=== PATIENT | female | born 1950 | race Caucasian/White ===

== ENCOUNTER 2017-04-05 09:09 | Emergency (ER) | payer OTHER ==
[2017-04-05 09:16] VITALS: RESP 16; TEMP 97.5; O2SAT 98
--- NOTE | 2017-04-05 09:53 | EDPHY ---
H & P Time Seen by Provider: 04/05/17 09:20 HPI/ROS: CHIEF COMPLAINT: High blood pressure HISTORY OF PRESENT ILLNESS: 67-year-old woman referred to us from Urgent Care. She went there because she has had some bilateral fullness in her ears for the last 3 weeks and was worried she might be getting an ear infection. She was evaluated, prescribed Flonase and referred to us because she had hypertension when her blood pressure was taken at urgent care. Patient tells me she was diagnosed with high blood pressure 20 years ago and was initially placed on medications, she does not recall the specific medication. She did have side effects and then changed her diet and exercise more and lost weight and was able to have her blood pressure come down spontaneously after that, although she has not had it checked for at least the last 6 months. Has not been on any hypertensive medications since then. Today she does not have symptoms other than her ear fullness. REVIEW OF SYSTEMS: Eye: no change in vision or double vision ENT: no sore throat Cardiac: no chest pain or syncope, no lightheadedness, no palpitations Pulmonary: no cough or SOB Abdomen: no vomiting, diarrhea, abdominal pain Musculoskeletal: No peripheral edema today, she has had some intermittent ankle swelling in the past Skin: no rash Neuro: no headache Constitutional: no fever : no urinary symptoms, normal urination A comprehensive 10 point review of systems is otherwise negative aside from elements mentioned in the history of present illness. PAST MEDICAL HISTORY: and tonsillectomy Social history: Lives in [place], recently changed insurance to Medicare, has been assigned to Dr. Deneen Melton at [facility] but has not seen her yet. General Appearance: Alert and conversant, cooperative. Eyes: No scleral icterus. Extraocular motion intact. ENT, Mouth: Normal mucous membranes. Patient does not have tympanic membrane erythema but has slight fullness of tympanic membranes on both sides. Otherwise normal pharynx. Respiratory: Normal respiratory effort, breath sounds equal, lungs are clear to auscultation. No rales. Cardiovascular: Regular rate and rhythm. No extra heart sounds or murmur. Gastrointestinal: Abdomen is soft and non tender. Neurological: Alert, face symmetric. Ambulatory, not ataxic. Fluent speech. Skin: Warm and dry, no rashes. Musculoskeletal: No peripheral edema. Psychiatric: Not agitated. Emergency Department course/MDM: Patient noted to have hypertension here but does not have evidence on history or physical examination of end-organ damage acutely. Patient was discussed in detail on the phone with her assigned primary care physician Deneen Melton who requested that I start the patient on 5 mg oral Norvasc daily and she will follow up with the patient this Monday or Monday in the clinic. No other diagnostics clinically acutely indicated, discussed with Dr. Melton and the patient, both in agreement. I think treating her with Flonase for her ear symptoms is reasonable and she does not have clinical indications for antibiotics on my evaluation. Potential risk, potential benefit, alternatives and potential side effects of Norvasc discussed and consented. Smoking Status: Former smoker Constitutional: Initial Vital Signs Temperature (C) 36.4 C 04/05/17 09:13 Heart Rate 69 04/05/17 09:13 Respiratory Rate 16 04/05/17 09:13 Blood Pressure 198/100 H 04/05/17 09:13 O2 Sat (%) 98 04/05/17 09:13 O2 Delivery Mode Room Air Allergies/Adverse Reactions: No Known Allergies Allergy (Verified 04/05/17 09:16) Home Medications: Medication Instructions Recorded amLODIPine BESYLATE [Norvasc 5 mg 5 mg PO DAILY #10 tab 04/05/17 (*)] MDM/Departure - Depart Disposition: Home, Routine, Self-Care Clinical Impression: Hypertension Condition: Good Instructions: Amlodipine (By mouth), Hypertension (ED) Additional Instructions: You are prescribed Norvasc 5 mg by mouth daily after discussion with your primary care provider Dr. Deneen Melton. She requested that you follow-up with her in 2 or 3 days this Monday or Monday at the walk-in clinic at [facility]. Prescriptions: amLODIPine BESYLATE [Norvasc 5 mg (*)] 5 mg PO DAILY #10 tab Referrals: TERRELL CARVAJAL [Primary Care Provider] - As per Instructions Deneen Melton MD [Medical Doctor] - As per Instructions [facility] [Outside] - As per Instructions
[2017-04-05 10:03] VITALS: BP 181/98; PULSE 71
== END 2017-04-05 10:02 | disposition home or self-care (01) ==
LOC: CED 09:09
DX: I10 Essential (primary) hypertension (principal); Z87.891 Personal history of nicotine dependence

== ENCOUNTER 2018-08-03 13:33 | Day surgery (SDC) | payer BC, OTHER ==
--- NOTE | 2018-08-03 08:21 | GHP ---
[f rep st] PREOP HISTORY AND PHYSICAL DATE OF ADMISSION: 08/03/2018 PREOP DIAGNOSIS: Right back soft tissue mass. HISTORY OF PRESENT ILLNESS: A 68-year-old woman who developed a nodule on her right upper back. It has been present for over 2 years. Over the past several weeks, it has become dramatically larger as well as more tender. She denies any overlying skin changes including redness. No drainage from the wound. No fevers or chills. She has never had anything like this before. She is not currently on antibiotics. PAST MEDICAL HISTORY: Hypertension. PAST SURGICAL HISTORY: Cesarian section. MEDICATIONS: Amlodipine. ALLERGIES: No known drug allergies. FAMILY HISTORY: Noncontributory. SOCIAL HISTORY: She reports using alcohol 1-2 times per week. No tobacco or recreational drug use. REVIEW OF SYSTEMS: No fevers or chills. PHYSICAL EXAMINATION: GENERAL: Well-developed, well-nourished woman in no acute distress. HEENT: Normocephalic, atraumatic. No hearing deficits. Pupils equal and round. No scleral icterus. Mucou s membranes moist. NECK: Trachea midline. RESPIRATORY: No increased work of breathing. CARDIOVAS CULAR: No peripheral edema. SKIN: The right upper back with large subcutaneous nodule consistent w ith a sebaceous cyst. No surrounding erythema. No purulence. No evidence of active infection. PSY CH: Mood and affect normal. NEURO: Grossly intact. IMPRESSION AND PLAN: 68-year-old woman with right upper back subcutaneous nodule consistent with alison aceous cyst. We recommended operative excision. Discussed risks of surgery including, but not limit ed to, heart attack, stroke, blood clots, or . Discussed risk of infection, bleeding, damage to surrounding structures, scar, or recurrence. She understands the risks and would like to proceed. Patient additionally seen by Dr. Holly Soares, who agrees with the above impression and plan. This wi ll be an outpatient procedure. She will receive antibiotics customer solutions coordinator to the operating room. /[id number]/MODL
[2018-08-03] MEDS ORDERED: LR 1,000 ML IV ONE (13:41)
--- NOTE | 2018-08-03 13:47 | PDANEPAE ---
ANE History of Present Illness Mass right post shoulder ANE Past Medical History - Cardiovascular History Hx Hypertension: Yes Hx Arrhythmias: No Hx Chest Pain: No Hx Coronary Artery / Peripheral Vascular Disease: No Hx CHF / Valvular Disease: No Hx Palpitations: No Cardiovascular History Comment: INTERMITTENT HTN OFF MEDS FOR 2 MONTHS - Pulmonary History Hx COPD: No Hx Asthma/Reactive Airway Disease: No Hx Recent Upper Respiratory Infection: No Hx Oxygen in Use at Home: No Hx Sleep Apnea: No Sleep Apnea Screening Result - Last Documented: Negative - Neurologic History Hx Cerebrovascular Accident: No Hx Seizures: No Hx Dementia: No - Endocrine History Hx Diabetes: No - Renal History Hx Renal Disorders: No - Liver History Hx Hepatic Disorders: No - Neurological & Psychiatric Hx Hx Neurological and Psychiatric Disorders: No - Cancer History Hx Cancer: No - Congenital Disorder History Hx Congenital Disorders: No - GI History Hx Gastrointestinal Disorders: Yes Gastrointestinal History Comment: INTERMITTENT HEARTBURN - Other Health History Other Health History: LUMP BACK OF RT SHLDR. SOME SLIGHT DRAINAGE - Chronic Pain History Chronic Pain: Yes (LUMP RT SHLDR) - Surgical History Prior Surgeries: TONSILLECTOMY. ANE Review of Systems Review of Systems: - Exercise capacity METS (RN): 4 METS ANE Patient History - Allergies Allergies/Adverse Reactions: No Known Allergies Allergy (Verified 04/05/17 09:16) - Home Medications Home Medications: Aspirin PRN 08/02/18 [Last Taken 08/02/18] Herbals/Supplements -Info Only DAILY 08/02/18 [Last Taken 08/03/18 06:00] - Smoking Hx Smoking Status: Former smoker - Family Anes Hx Family Hx Anesthesia Complications: NEG ANE Labs/Vital Signs - Vital Signs Height: 160.02 cm Weight: 63.503 kg ANE Physical Exam - Airway Neck exam: FROM Mallampati Score: Class 2 Mouth exam: normal dental/mouth exam - Pulmonary Pulmonary: no respiratory distress - Cardiovascular Cardiovascular: regular rate and rhythym - ASA Status ASA Status: II ANE Anesthesia Plan Anesthesia Plan: general endotracheal anesthesia
[2018-08-03] MEDS ORDERED: MIDAZOLAM 2 MG/2 ML VIAL IVP ONE (13:49)
[2018-08-03] MEDS ORDERED: ceFAZolin 2 GM/DEXTROSE 100 ML IV ONE (14:05)
[2018-08-03] MEDS ORDERED: BUPIVACAINE 0.5% 30 ML SDV ONE (14:08)
[2018-08-03] MEDS ORDERED: fentaNYL 100 MCG/2 ML INJ ONE (14:23)
[2018-08-03] MEDS ORDERED: PROPOFOL 200 MG/20 ML VIAL ONE (14:23)
[2018-08-03] MEDS ORDERED: ONDANSETRON 4 MG/2 ML VIAL ONE (14:36)
[2018-08-03] MEDS ORDERED: DEXAMETHASONE 4 MG/ML VIAL ONE (14:36)
[2018-08-03] MEDS ORDERED: ROCURONIUM 50 MG/5 ML VIAL ONE (14:37)
[2018-08-03] MEDS ORDERED: SUGAMMADEX SODIUM 200 MG/2 ML VIAL IVP ONE (14:54)
[2018-08-03] MEDS ORDERED: HYDROCODONE/APAP 5/325 TAB PO PRN (15:06)
[2018-08-03] MEDS ORDERED: PROMETHAZINE HCL 25 MG/ML INJ IVP PRN (15:06)
[2018-08-03] MEDS ORDERED: NALOXONE HCL 0.4 MG/ML INJ IVP PRN ×2 (15:06→15:28)
[2018-08-03] MEDS ORDERED: fentaNYL 100 MCG/2 ML INJ IVP PRN (15:06)
[2018-08-03] MEDS ORDERED: ONDANSETRON 4 MG/2 ML VIAL IVP PRN (15:06)
--- NOTE | 2018-08-03 15:13 | POSTOPPROG ---
Post Op Note Date of Operation: 08/03/18 Surgeon: Holly Soares Anesthesiologist: quintin Anesthesia: GET(General Endotracheal) Pre-op Diagnosis: infected sebaceous cyst Post-op Diagnosis: same Indication: 68 year old with enlarging cyst on back Procedure: excision of [id number] cm Findings: weeping cyst to level of muscle Inf/Abcess present in the surg proc area at time of surgery?: Yes Depth: Deep Incisional (Fascial) EBL: Minimal Specimen(s): cyst
[2018-08-03] MEDS ORDERED: LABETALOL HCL 5 MG/ML 20 ML MDV ONE (15:28)
--- NOTE | 2018-08-03 15:29 | POSTANESTH ---
Post Anesthetic Evaluation Cardiovascular Status: Similar to Pre-Op Cond, Tx Hyper/Hypo-tension Respiratory Status: Similar to Pre-op Cond. Level of Consciousness/Mental Status: Alert and Oriented Pain Control: Adequate, Prn Tx Ordered Nausea/Vomiting Control: Adequate, Prn Tx Ordered Complications Possibly Related to Anesthesia: None Noted
[2018-08-03] MEDS: LABETALOL HCL 5 MG/ML 20 ML MDV IVP PRN ×2 (15:32→15:43)
[2018-08-03 16:59] VITALS: BP 165/92
== END 2018-08-03 17:00 | disposition home or self-care (01) ==
LOC: FSGY 13:33
PROVIDERS: ATTEND Surgery
PROC: 0JB70ZZ Excision of Back Subcutaneous Tissue and Fascia, Open Approach (ICD-10-PCS; principal; 2018-08-03 15:00)
DX: L72.0 Epidermal cyst (principal); I10 Essential (primary) hypertension
CPT/HCPCS: J0690; J1100; J2250; J2405; J2704; J3010